=== PATIENT | female | born 1995 | race Caucasian/White ===

== ENCOUNTER 2016-12-07 22:50 | Emergency (ER) | payer BC ==
[2016-12-08] MEDS ORDERED: IPRATROPIUM/ALBUTEROL 3 ML DEYVIAL ONE (00:04)
[2016-12-08] MEDS ORDERED: IPRATROPIUM/ALBUTEROL 3 ML DEYVIAL IH ONE ×2 (00:08→01:45)
--- NOTE | 2016-12-08 01:41 | EDPHY ---
H & P Stated Complaint: cold cough pain to chest HPI/ROS: HPI CHIEF COMPLAINT: Cough x1 week, anterior chest wall pain HISTORY OF PRESENT ILLNESS: This patient very pleasant 21-year-old female denies having any significant medical or surgical history, does not take any daily medications, presents emergency room with 1 week of worsening cough. She tells me she has had a cough has also seen a primary care doctor was diagnosed with a virus. However over the past week she has developed progressively worsening cough and now having anterior chest wall pain from coughing. She has not been taking any medication. She tells me when she does cough vigorously she does get some yellow tinged sputum. No blood. She denies any pleuritic pain. Denies any weakness numbness or tingling. Denies chest pain except for anterior chest wall pain. Specifically it is worse after she coughs. No trauma. Denies recent fever. Past Medical History: No significant medical history Past Surgical History: no significant surgical history Social History: denies daily use drugs alcohol tobacco products Family History: Noncontributory ROS REVIEW OF SYSTEMS: A comprehensive 10 point review of systems is otherwise negative aside from elements mentioned in the history of present illness. Exam Constitutional triage nursing summary reviewed, vital signs reviewed, awake/ alert. Eyes normal conjunctivae and sclera, EOMI, PERRLA. HENT normal inspection, atraumatic, moist mucus membranes, no epistaxis, neck supple/ no meningismus, no raccoon eyes. Respiratory Bronchitic sounding cough, clear to auscultation bilaterally, normal breath sounds, no respiratory distress, no wheezing. Cardiovascular chest wall: Tender to palpation over the sternum and costo chondral angles on both sides, rate normal, regular rhythm, no murmur, no edema , distal pulses normal. Gastrointestinal soft, non-tender, no rebound, no guarding, normal bowel sounds, no distension, no pulsatile mass. Genitourinary no CVA tenderness. Musculoskeletal no midline vertebral tenderness, full range of motion, no calf swelling, no tenderness of extremities, no meningismus, good pulses, neurovascularly intact. Skin pink, warm, & dry, no rash, skin atraumatic. Neurologic awake, alert and oriented x 3, AAOx3, moves all 4 extremities equally, motor intact, sensory intact, CN II-XII intact, normal cerebellar, normal vision, normal speech. Psychiatric normal mood/affect. Heme/Lymph/Immune no lymphadenopathy. Differential Diagnosis: Includes but is not limited to in a particular order, upper respiratory tract infection, viral syndrome, costochondritis, anterior chest wall pain due to persistent coughing, pneumonia, reactive airway disease, doubt pulmonary embolism Medical Decision Making: Plan for this patient is to obtain a two view chest x- ray to rule out pneumonia, ibuprofen anti-inflammatory pain medicine for anterior chest wall pain tender palpation on exam, and a DuoNeb breathing treatment and re-evaluate. Re-evaluation: 0304: re-examination at this time patient is resting comfortably no acute distress. Patient feels much better after ibuprofen 800 mg and DuoNeb breathing treatment. She is requesting be discharged home. ED x-ray chest two view: Scoliosis present. No focal pneumonia visualized. No pneumothorax. Source: Patient - Personal History LMP (Females 10-55): 1-7 Days Ago Current Tetanus/Diphtheria Vaccine: Yes Current Tetanus Diphtheria and Acellular Pertussis (TDAP): Yes Tetanus Vaccine Date: within 10 years - Medical/Surgical History Hx Asthma: No Hx Chronic Respiratory Disease: No Hx Diabetes: No Hx Cardiac Disease: No Hx Renal Disease: No Hx Cirrhosis: No Hx Alcoholism: No Hx HIV/AIDS: No Hx Splenectomy or Spleen Trauma: No Other PMH: Depression/anxiety - Social History Smoking Status: Never smoked Constitutional: Initial Vital Signs Temperature (C) 36.9 C 12/07/16 23:12 Heart Rate 79 12/07/16 23:12 Respiratory Rate 20 12/07/16 23:12 Blood Pressure 119/76 12/07/16 23:12 O2 Sat (%) 96 12/07/16 23:12 O2 Delivery Mode Room Air Allergies/Adverse Reactions: No Known Allergies Allergy (Verified 09/25/16 21:12) Home Medications: Medication Instructions Recorded Propranolol HCl 09/25/16 Zoloft 100mg (*) 09/25/16 Nuva Ring 12/07/16 Albuterol [Proventil Inhaler HFA 1 - 2 puffs IH Q4H #1 mdi 12/08/16 (*)] Guaifenesin [Guaifenesin ER] 600 mg PO BID #14 tab.er.12h 12/08/16 Ibuprofen [Motrin (*)] 800 mg PO Q6-8PRN #10 tab 12/08/16 predniSONE 60 mg PO DAILY #15 tab 12/08/16 Medical Decision Making - Data Points Medications Given: Discontinued Medications Albuterol/Ipratropium (Duoneb) 3 ml IH EDNOW ONE Stop: 12/08/16 00:09 Last Admin: 12/08/16 00:18 Dose: 3 ml Albuterol/Ipratropium (Duoneb) 3 ml IH EDNOW ONE Stop: 12/08/16 01:46 Last Admin: 12/08/16 01:52 Dose: 3 ml Ibuprofen (Motrin) 800 mg PO EDNOW ONE Stop: 12/08/16 01:46 Last Admin: 12/08/16 01:52 Dose: 800 mg Departure - Departure Disposition: Home, Routine, Self-Care Clinical Impression: Acute bronchitis Qualifiers: Bronchitis organism: unspecified organism Qualified Code(s): J20.9 - Acute bronchitis, unspecified Condition: Good Instructions: Acute Bronchitis (ED) Additional Instructions: 1. Make sure to drink lots of fluids stay well-hydrated. 2. Return emergency room if develops worsening symptoms questions or concerns. Referrals: Monique St MD [Primary Care Provider] - As per Instructions Prescriptions: Albuterol [Proventil Inhaler HFA (*)] 1 - 2 puffs IH Q4H #1 mdi Guaifenesin [Guaifenesin ER] 600 mg PO BID #14 tab.er.12h Ibuprofen [Motrin (*)] 800 mg PO Q6-8PRN #10 tab predniSONE 60 mg PO DAILY #15 tab
[2016-12-08] MEDS ORDERED: IBUPROFEN 200 MG TAB PO ONE (01:45)
[2016-12-08 01:52] VITALS: RESP 16; O2SAT 94
[2016-12-08] MEDS ORDERED: HYDROCODONE/APAP 5/325 TAB PO ONE (03:15)
[2016-12-08] MEDS ORDERED: HYDROCODONE/APAP 5/325 TAB ONE (03:19)
[2016-12-08 03:21] VITALS: BP 110/65; PULSE 75; TEMP 98.1
== END 2016-12-08 03:22 | disposition home or self-care (01) ==
DX: J20.9 Acute bronchitis, unspecified (principal)

== ENCOUNTER 2017-08-07 06:35 | Emergency (ER) | payer BC ==
[2017-08-07 06:44] VITALS: BP 107/68; PULSE 70; RESP 16; TEMP 98.4; O2SAT 96
[2017-08-07] MEDS ORDERED: IBUPROFEN 600 MG TAB PO ONE (07:00)
--- NOTE | 2017-08-07 07:00 | EDPHY ---
H & P Time Seen by Provider: 08/07/17 06:50 HPI/ROS: CHIEF COMPLAINT: Left ear pain HISTORY OF PRESENT ILLNESS: Patient is had sore throat and runny nose for 24 hours and woke up this morning at 5:30 a.m. with left ear pain and pressure and feeling like she can't equal eyes, with decreased hearing. Symptoms moderate. No ear drainage. REVIEW OF SYSTEMS: No fever or chills. Able to swallow and breathe normally. PAST MEDICAL HISTORY: Depression and anxiety, ear infections as a child with ear tubes Social history: [employer] student General Appearance: Alert and conversant, cooperative. No facial swelling, no mastoid swelling or tenderness. External ears normal. Normal right tympanic membrane, left is bulging and erythematous, normal left ear canal. Normal pharynx without trismus or erythema or exudate. No stridor or drooling and normal respiratory effort, normal range of motion of the neck. Normal voice. Emergency Department course/MDM: Acute suppurative otitis media on the left side without perforation or evidence of mastoiditis or other complication. Oral ibuprofen, oral decongestant, amoxicillin x7 days. [facility] patient will follow up with Dr. Flores this week if not improving Smoking Status: Never smoked Constitutional: Initial Vital Signs Temperature (C) 36.9 C 08/07/17 06:41 Heart Rate 70 08/07/17 06:41 Respiratory Rate 16 08/07/17 06:41 Blood Pressure 107/68 08/07/17 06:41 O2 Sat (%) 96 08/07/17 06:41 O2 Delivery Mode Room Air Allergies/Adverse Reactions: No Known Allergies Allergy (Verified 09/25/16 21:12) Home Medications: Medication Instructions Recorded Propranolol HCl 09/25/16 Zoloft 100mg (*) 09/25/16 Nuva Ring 12/07/16 Amoxicillin Trihydrate 500 mg PO TID 7 Days cap 08/07/17 [Amoxicillin] MDM/Departure - Depart Disposition: Home, Routine, Self-Care Clinical Impression: Acute otitis media Qualifiers: Otitis media type: suppurative Laterality: left Recurrence: recurrent Spontaneous tympanic membrane rupture: without spontaneous rupture Qualified Code(s): H66.005 - Acute suppurative otitis media without spontaneous rupture of ear drum, recurrent, left ear Condition: Good Instructions: Otitis Media (ED) Additional Instructions: Oral decongestant such as Sudafed for the next 72 hours. Oral antibiotics as prescribed. Ibuprofen orally 600 mg every 8 hours for the next 3 days. Follow-up with [facility] ENT for ear drainage, worsening pain, not better in 48 hours. Prescriptions: Amoxicillin Trihydrate [Amoxicillin] 500 mg PO TID 7 Days cap Referrals: Monique St MD [Primary Care Provider] - As per Instructions Ruth Flores MD [Medical Doctor] - As per Instructions
== END 2017-08-07 07:11 | disposition home or self-care (01) ==
DX: H66.005 Acute suppurative otitis media without spontaneous rupture of ear drum, recurrent, left ear (principal)

== ENCOUNTER 2018-03-14 20:24 | Emergency (ER) | payer BC | END 2018-03-14 20:47 | disposition left against medical advice (07) | DX: Z53.21 Procedure and treatment not carried out due to patient leaving prior to being seen by health care provider (principal) ==